=== PATIENT | female | born 1980 | race Caucasian/White ===

== ENCOUNTER 2018-03-08 13:49 | Day surgery (SDC) | payer OTHER ==
[2018-03-07 17:11] VITALS: BMI 23.0
--- NOTE | 2018-03-08 15:09 | HP ---
History & Physical Update - History History: No Change - Physical Physical: No Change - Assessment Assessment: No Change - Plan Plan: No Change Currently as noted:: Hysteroscopy, D&C, Endometrial ablation
[2018-03-08] MEDS ORDERED: MIDAZOLAM HCL 2 MG/2 ML SINGLE DOSE VIAL ONE (15:14)
[2018-03-08] MEDS ORDERED: PROPOFOL 20 ML ONE ×2 (15:14→15:57)
[2018-03-08] MEDS ORDERED: ceFAZolin SODIUM 1 GM VIAL ONE (15:28)
[2018-03-08] MEDS ORDERED: DEXAMETHASONE SOD PHOSPHATE 4 MG/1 ML VIAL ONE (15:28)
[2018-03-08] MEDS ORDERED: ceFAZolin SODIUM 1 GM VIAL IVPB ONE (15:30)
[2018-03-08] MEDS ORDERED: KETOROLAC TROMETHAMINE 30 MG/1 ML VIAL ONE (15:42)
[2018-03-08] MEDS ORDERED: oxyCODONE HCL 5 MG TABLET PO PRN (16:12)
[2018-03-08] MEDS ORDERED: ONDANSETRON 4 MG/2 ML VIAL IVPUSH PRN (16:12)
--- NOTE | 2018-03-08 16:14 | OP ---
Operative Note - Note: Operative Date: 03/08/18 Pre-Operative Diagnosis: Menorrhagia Operation: Hysteroscopy, D&C, Thermal Global Endometrial Ablation Findings: EUA= small AV uterus, no pelvic or adnexal masses Hysteroscopy= normal endometrial cavity, no lesions/masses Post-Operative Diagnosis: Same as Pre-op Surgeon: Wesley Styles Anesthesiologist/INFORMATION TECHNOLOGY AUDITOR: Sarah Jones Anesthesia: General Specimens Removed: Endometrial curettings Estimated Blood Loss (mls): 5 Drains, Volume Out (mls): 0 Blood Volume Replaced (mls): 0 Fluid Volume Replaced (mls): 600 Operative Report Dictated: Yes
[2018-03-08] MEDS ORDERED: LACTATED RINGERS SOLUTION 1,000 ML IV SCH (16:15)
[2018-03-08] MEDS ORDERED: ACETAMINOPHEN INJECTION 100 ML IVPB ONE (17:03)
[2018-03-08] MEDS ORDERED: ACETAMINOPHEN 1000 MG/100 ML VIAL (NON FORMULARY) IVPB ONE (17:15)
[2018-03-08] MEDS ORDERED: ONDANSETRON 4 MG/2 ML VIAL ONE (17:28)
[2018-03-08 17:59] VITALS: TEMP 97.8
--- NOTE | 2018-03-08 18:24 | OP ---
DATE OF OPERATION: 03/08/2018 PREOPERATIVE DIAGNOSIS: Menorrhagia. POSTOPERATIVE DIAGNOSIS: Menorrhagia. PROCEDURE: Hysteroscopy, dilation and curettage, thermal global endometrial ablation using device. SURGEON: Concepción Gonzalez M.D. ANESTHESIOLOGIST: Sarah Jones M.D. ANESTHESIA: General. COMPLICATIONS: None. ESTIMATED BLOOD LOSS: Less than 5 mL. INTRAVENOUS FLUIDS: 600 mL. PATHOLOGY: Endometrial curettings. FINDINGS: Examination under anesthesia revealed a small anteverted uterus with no pelvic or adnexal masses. Hysteroscopy revealed a normal endometrial cavity with no lesions or masses. Both fallopian tubes were visualized and appeared to be within normal limits. PROCEDURE: The patient was met preoperatively. Risks, benefits, and alternatives of surgery were discussed in detail. All questions were answered. The patient was brought to the OR with the IV running. She was placed on the surgical table in the supine position. The general anesthesia was achieved without difficulty. The patient was then placed in a dorsal lithotomy position using adjustable Kapil stirrups. The timeout procedure was conducted as per standard protocol. The patient was then examined under anesthesia with the findings as described above. The patient was then prepped and draped in the usual sterile fashion. A weighted speculum was introduced inside the vagina with good visualization of the cervix. The anterior cervical lip was grasped with a single-toothed tenaculum. The cervical os was dilated to accommodate size 27 Kohler dilator. A hysteroscope was then gently introduced into the uterine cavity through the cervical os. The findings were as described above. Once the diagnostic hysteroscopy was completed, thermal global endometrial ablation was performed using a device under direct visualization. The endometrial ablation was completed without complications. Once the hysteroscopy was done, the uterine curettage was performed and tissue was sent to pathology for evaluation. Good hemostasis was noted. The patient was then returned to supine position. Sponge, lap, and needle counts were correct. The patient was transferred to recovery room in stable condition and awake. CONCEPCIÓN GONZALEZ M.D. DIEUDONNE/[id number]
[2018-03-08 18:28] VITALS: PULSE 66
[2018-03-08] MEDS ORDERED: oxyCODONE HCL 5 MG TABLET ONE (18:49)
[2018-03-08 20:13] VITALS: BP 118/83
--- NOTE | 2018-03-10 14:46 | PATH ---
Surgical Pathology Report Patient Name: LATRELL BILLINGSLEY [facility]. Rec. #: [id number] /Age/Gender: 1980 (Age: 37) / F Account: [id number] Location: [facility] SURGICAL Taken: 03/08/2018 Received: 03/09/2018 Reported: 03/10/2018 Physicians: Wesley Styles M.D. Specimen(s) Received ENDOMETRIAL CURETTINGS Clinical History Menorrhagia Final Diagnosis ENDOMETRIAL CURETTINGS, HYSTEROSCOPY, DILATION AND CURETTAGE, AND ENDOMETRIAL ABLATION: POLYPOID FRAGMENTS OF ENDOMETRIUM SUGGESTIVE OF ENDOMETRIAL POLYP AND SECRETORY ENDOMETRIUM. Electronically Signed Nati Collado M.D. Gross Description Received in formalin labeled "endometrial curettage," is a 2.4 x 2.0 x 0.3 cm aggregate of laguerre soft tissue fragments admixed with blood clot. The formalin is filtered and the specimen is entirely submitted in one cassette. /03/09/2018 [facility]03/09/2018
== END 2018-03-08 20:00 | disposition home or self-care (01) ==
LOC: JASU-SURG 13:49
PROVIDERS: ATTEND Obstetrics & Gynecology
PROC: 0U5B8ZZ Destruction of Endometrium, Via Natural or Artificial Opening Endoscopic (ICD-10-PCS; principal; 2018-03-08 14:30)
PROC: 0UDB7ZZ Extraction of Endometrium, Via Natural or Artificial Opening (ICD-10-PCS; 2018-03-08 14:30)
DX: N92.0 Excessive and frequent menstruation with regular cycle (principal)
CPT/HCPCS: 84703; 88305-TC; 94760; J0131